=== PATIENT | female | born 1970 | race Caucasian/White ===

== ENCOUNTER 2018-01-16 10:11 | Emergency (ER) | payer BC ==
[2018-01-16 10:21] VITALS: BP 103/69; PULSE 72; RESP 18; TEMP 97.9
--- NOTE | 2018-01-16 10:49 | XR ---
EXAMINATION TYPE: XR finger RT , 3 VIEWS DATE OF EXAM ORDERED: 01/16/2018 HISTORY: Pain, slammed in door. COMPARISON: None. FINDINGS: There is a mildly displaced fracture the tuft of the right thumb. IMPRESSION: MILDLY DISPLACED FRACTURE OF THE TUFT OF THE RIGHT THUMB. CODE A: INITIAL ENCOUNTER FOR CLOSED FRACTURE.
--- NOTE | 2018-01-16 10:52 | ED ---
General Adult HPI - General Chief complaint: Extremity Injury, Upper Stated complaint: rt thumb injury Time Seen by Provider: 01/16/18 10:25 Source: patient, RN notes reviewed Mode of arrival: ambulatory Limitations: no limitations - History of Present Illness Initial comments: 47-year-old female presents to the emergency department for a chief complaint of right thumb pain 5 days. Patient states that 5 days ago she accidentally "slammed" her thumb in the doorway. She states that since then she has had some tingling in the tip of the thumb as well as bruising and swelling. She states it does not seem to be getting better so she came to the emergency department. She denies any other injuries. She states most of the pain is in the distal aspect of the thumb. She states it is a dull aching pain. She states she has been taking Motrin and it does help somewhat but is not relieving her pain. Patient has no other complaints at this time including shortness of breath, chest pain, abdominal pain, nausea or vomiting, headache, or visual changes. - Related Data Home Medications Medication Instructions Recorded Confirmed Fexofenadine HCl [Eva Allergy] 30 mg PO DAILY 10/29/14 10/29/14 Multivitamins, Thera [Multivitamin 1 tab PO DAILY 10/29/14 10/29/14 (formulary)] Previous Rx's Medication Instructions Recorded HYDROcodone/APAP 7.5-325MG [Gillett 1 each PO Q4H PRN #30 tab 10/29/14 7.5-325] Allergies Allergy/AdvReac Type Severity Reaction Status Date / Time Penicillins Allergy Rash/Hives Verified 01/16/18 10:22 Review of Systems ROS Statement: Those systems with pertinent positive or pertinent negative responses have been documented in the HPI. ROS Other: All systems not noted in ROS Statement are negative. Past Medical History Past Medical History: No Reported History Additional Past Medical History / Comment(s): Ovarian cyst, dermoid cyst with removal of rt ovary History of Any Multi-Drug Resistant Organisms: None Reported Past Surgical History: Appendectomy Additional Past Surgical History / Comment(s): Right salpingo-oophorectomy Past Anesthesia/Blood Transfusion Reactions: No Reported Reaction Past Psychological History: No Psychological Hx Reported Smoking Status: Former smoker Past Alcohol Use History: Occasional Past Drug Use History: None Reported - Past Family History Mother Family Medical History: Diabetes Mellitus Father Family Medical History: Hyperlipidemia, Hypertension Additional Family Medical History / Comment(s): heart disease Sister(s) Family Medical History: Cancer Additional Family Medical History / Comment(s): hodgkins lymphoma General Exam Limitations: no limitations General appearance: alert, in no apparent distress Head exam: Present: atraumatic, normocephalic, normal inspection Eye exam: Present: normal appearance, PERRL, EOMI. Absent: scleral icterus, conjunctival injection, periorbital swelling ENT exam: Present: normal exam, mucous membranes moist Neck exam: Present: normal inspection, full ROM. Absent: tenderness, meningismus, lymphadenopathy Respiratory exam: Present: normal lung sounds bilaterally. Absent: respiratory distress, wheezes, rales, rhonchi, stridor Cardiovascular Exam: Present: regular rate, normal rhythm, normal heart sounds. Absent: systolic murmur, diastolic murmur, rubs, gallop, clicks Extremities exam: Present: tenderness (Tenderness in the distal phalanx of the right thumb), normal capillary refill (Capillary refill less than 2 seconds in the right thumb. Radial pulse 2+ in the right upper extremity), other (Mild edema noted of the distal pharynx of the right thumb with minor ecchymosis. There is about a 10-20% subungual hematoma. No spreading or streaking redness, no drainage, no sign of infection. There is no break in the skin.). Absent: full ROM (Full range of motion in the MCP joint. Patient does have some limited flexion to 20 in the IP joint, full extension of the IP joint of the right thumb) Course Vital Signs 01/16/18 10:20 Temperature 97.9 F Pulse Rate 72 Respiratory 18 Rate Blood Pressure 103/69 O2 Sat by Pulse 100 Oximetry Medical Decision Making - Medical Decision Making 47-year-old female presents to the emergency department for a chief complaint of thumb pain 5 days. Patient states she slammed her right thumb in a door. Patient states it has had numbness to the tip of the thumb as well as pain and swelling for the past 5 days. She states it is not improving so she came to the emergency department. She has been applying ice and taking Motrin. Capillary refill less than 2 seconds in the right thumb. Patient has some limited range of motion of the IP joint of the right thumb but is able to flex to about 20 with full extension. There is no break in the skin, no signs of infection such as spreading or streaking redness. X-ray of the thumb shows a mildly displaced fracture of the tuft of the right thumb. Patient was splinted with a finger splint immobilizing the IP joint of the right thumb. Minimal subungual hematoma measuring about 10% of the fingernail. Patient denies any significant pressure under the nail bed and does not want to go trephination at this time. If symptoms worsen she will return for trephination. She'll follow up with primary care in 1-2 days. She was given a referral to orthopedics if she cannot see her primary care provider. Disposition Clinical Impression: Fracture of thumb Disposition: HOME SELF-CARE Condition: Good Instructions: Thumb Fracture (ED) Additional Instructions: Please wear splint and follow up with primary care or orthopedics. Please take motrin and tylenol for pain. Please ice the thumb and rest, ice, and elevate. Return here if you have any worsening symptoms. Is patient prescribed a controlled substance at d/c from ED?: No Referrals: Chirag Byrd DO [Doctor of Osteopathic Medicine] - 1-2 days Time of Disposition: 11:12
== END 2018-01-16 11:25 | disposition home or self-care (01) ==
LOC: EC 10:11
DX: S62.521A Displaced fracture of distal phalanx of right thumb, initial encounter for closed fracture (principal); Z87.891 Personal history of nicotine dependence; Z79.899 Other long term (current) drug therapy; Z88.0 Allergy status to penicillin; W23.0XXA Caught, crushed, jammed, or pinched between moving objects, initial encounter
CPT/HCPCS: 99283

== ENCOUNTER 2019-10-25 10:00 | Emergency (ER) | payer BC, OTHER ==
[2019-10-25] MEDS ORDERED: PROPARACAINE 0.5% OPHTH DROPS 15 ML BTL LEFT EYE STA (10:17)
--- NOTE | 2019-10-25 10:21 | ED ---
Eye Problem HPI - General Chief complaint: Eye Problems Stated complaint: Eye Injury Time Seen by Provider: 10/25/19 10:07 Source: patient, RN notes reviewed, old records reviewed Mode of arrival: ambulatory Limitations: no limitations - History of Present Illness Initial comments: Patient is a 40-year-old female presents today with 5 days of left eye pain. Patient reports that she noticed some redness and swelling over the weekend. She states she went to an urgent care clinic on Wednesday and was started on tobramycin drops and Keflex for blepharitis and conjunctivitis on Wednesday. She reports that she took them he had for 24 hours yesterday and comes here with complaining of worsening swelling to the left eyelid. Patient states that she has some pain with eye movements and does complain of a headache. Patient states she doesn't typically wear glasses. She does not wear contacts. She reports that she did switch to a new mascara during "quarantine time". But states that she has not been using for the past few days. Patient states that she has had no fevers or chills. She does report some blurry vision within the left eye. - Related Data Home Medications Medication Instructions Recorded Confirmed Cephalexin [Keflex] 500 mg PO Q8HR 10/25/19 10/25/19 Tobramycin 0.3% Ophth Soln [Tobrex 1 drop LEFT EYE Q4H 10/25/19 10/25/19 0.3% Ophth Soln] Previous Rx's Medication Instructions Recorded Cephalexin [Keflex] 500 mg PO Q6HR 7 Days #28 cap 10/25/19 Allergies Allergy/AdvReac Type Severity Reaction Status Date / Time Penicillins Allergy Rash/Hives Verified 10/25/19 11:51 Review of Systems ROS Statement: Those systems with pertinent positive or pertinent negative responses have been documented in the HPI. ROS Other: All systems not noted in ROS Statement are negative. Past Medical History Past Medical History: No Reported History Additional Past Medical History / Comment(s): Ovarian cyst, dermoid cyst with removal of rt ovary History of Any Multi-Drug Resistant Organisms: None Reported Past Surgical History: Appendectomy Additional Past Surgical History / Comment(s): Right salpingo-oophorectomy Past Anesthesia/Blood Transfusion Reactions: No Reported Reaction Past Psychological History: No Psychological Hx Reported Smoking Status: Current every day smoker, Never smoker Past Alcohol Use History: Occasional Past Drug Use History: None Reported - Past Family History Mother Family Medical History: Diabetes Mellitus Father Family Medical History: Hyperlipidemia, Hypertension Additional Family Medical History / Comment(s): heart disease Sister(s) Family Medical History: Cancer Additional Family Medical History / Comment(s): hodgkins lymphoma General Exam - General Exam Comments Initial Comments: 48-year-old female. Alert and oriented. No distress. Limitations: no limitations General appearance: alert, in no apparent distress Head exam: Present: atraumatic, normocephalic, normal inspection Eye exam: Present: PERRL, EOMI, periorbital swelling (It has left eye periorbital swelling, mainly over the left upper eyelids concerning for blepharitis. She does have some conjunctival injection and chemosis over the left eye. She reports pain with left lateral gaze.), periorbital tenderness. Absent: normal appearance, scleral icterus, conjunctival injection ENT exam: Present: normal exam, mucous membranes moist Neck exam: Present: normal inspection. Absent: tenderness, meningismus, lymphadenopathy Respiratory exam: Present: normal lung sounds bilaterally. Absent: respiratory distress, wheezes, rales, rhonchi, stridor Cardiovascular Exam: Present: regular rate, normal rhythm, normal heart sounds. Absent: systolic murmur, diastolic murmur, rubs, gallop, clicks GI/Abdominal exam: Present: soft, normal bowel sounds. Absent: distended, tenderness, guarding, rebound, rigid Extremities exam: Present: normal inspection, full ROM, normal capillary refill. Absent: tenderness, pedal edema, joint swelling, calf tenderness Back exam: Present: normal inspection Neurological exam: Present: alert, oriented X3, CN II-XII intact Psychiatric exam: Present: normal affect, normal mood Skin exam: Present: warm, dry, intact, normal color. Absent: rash Course Vital Signs 10/25/19 10/25/19 10/25/19 10:01 10:06 11:06 Temperature 98.0 F Pulse Rate 70 Respiratory 16 18 18 Rate Blood Pressure 138/85 O2 Sat by Pulse 100 Oximetry Medical Decision Making - Medical Decision Making 40-year-old female presents with 5 days of left eye pain and swelling. She has evidence of blepharitis. Extraocular eye movements to cause some pain with left lateral gaze. Therefore CT of the orbits was completed. His evidence of periorbital cellulitis with no evidence of orbital cellulitis. Patient intraocular pressures were 15 and 14 on left and right eye. Visual acuity was 20/40 which is normal for her she does her glasses. Patient at this time is taking tobramycin drops. Discussed increasing the Keflex as every 6 hours. Discussed appropriate follow-up with primary care physician and ophthalmology. Discussed the importance of doing gentle cleansing and warm compresses over the eye - Lab Data Result diagrams: 10/25/19 10:38 10/25/19 10:38 Lab Results 10/25/19 10/25/19 Range/Units 10:38 10:38 WBC 7.6 (3.8-10.6) k/uL RBC 4.66 (3.80-5.40) m/uL Hgb 15.0 (11.4-16.0) gm/dL Hct 46.2 H (34.0-46.0) % MCV 99.0 (80.0-100.0) fL MCH 32.2 (25.0-35.0) pg MCHC 32.5 (31.0-37.0) g/dL RDW 11.3 L (11.5-15.5) % Plt Count 261 (150-450) k/uL Neutrophils % 67 % Lymphocytes % 24 % Monocytes % 5 % Eosinophils % 2 % Basophils % 0 % Neutrophils # 5.1 (1.3-7.7) k/uL Lymphocytes # 1.9 (1.0-4.8) k/uL Monocytes # 0.4 (0-1.0) k/uL Eosinophils # 0.1 (0-0.7) k/uL Basophils # 0.0 (0-0.2) k/uL Sodium 143 (137-145) mmol/L Potassium 4.6 (3.5-5.1) mmol/L Chloride 107 (98-107) mmol/L Carbon Dioxide 27 (22-30) mmol/L Anion Gap 9 mmol/L BUN 9 (7-17) mg/dL Creatinine 0.68 (0.52-1.04) mg/dL Est GFR (CKD-EPI)AfAm >90 (>60 ml/min/1.73 sqM) Est GFR (CKD-EPI)NonAf >90 (>60 ml/min/1.73 sqM) Glucose 50 L (74-99) mg/dL Calcium 9.7 (8.4-10.2) mg/dL - Radiology Data Radiology results: report reviewed Correlate for preseptal orbital cellulitis and follow-up is indicated. Disposition Clinical Impression: Blepharitis, Periorbital cellulitis Disposition: HOME SELF-CARE Condition: Good Instructions (If sedation given, give patient instructions): Blepharitis (ED), Periorbital Cellulitis in Adults (ED) Additional Instructions: Continue to do the eyedrops as previously prescribed. Increase the Keflex to 4 times a day. Patient should follow-up with ophthalmology. Continue to wash the eyelid with warm compresses and gentle soap Prescriptions: Cephalexin [Keflex] 500 mg PO Q6HR 7 Days #28 cap Is patient prescribed a controlled substance at d/c from ED?: No Referrals: None,Stated [Primary Care Provider] - 1-2 days Marc Reece MD [STAFF PHYSICIAN] - 1-2 days Time of Disposition: 12:10
[2019-10-25 10:50] LABS: Basophils % (A) 0 %; Eosinophils # (A) 0.1 k/uL (0-0.7); Eosinophils % (A) 2 %; HCT 46.2 % (34.0-46.0); Lymphocytes # (A) 1.9 k/uL (1.0-4.8); Lymphocytes % (A) 24 %; MCH 32.2 pg (25.0-35.0); MCHC 32.5 g/dL (31.0-37.0); Mean Platelet Volume 8.3; Monocytes # (A) 0.4 k/uL (0-1.0); Monocytes % (A) 5 %; Neutrophils # (A) 5.1 k/uL (1.3-7.7); Neutrophils % (A) 67 %; Platelet Count 261 k/uL (150-450); RBC 4.66 m/uL (3.80-5.40); RDW 11.3 % (11.5-15.5); WBC 7.6 k/uL (3.8-10.6)
--- NOTE | 2019-10-25 11:14 | CT ---
EXAMINATION TYPE: CT orbits w con DATE OF EXAM: 10/25/2019 COMPARISON: None HISTORY: Eye injury and left eye swelling CT DLP: 162.2 mGycm Automated exposure control for dose reduction was used. CONTRAST: Performed with IV Contrast, patient injected with 100 ml mL of Isovue 300. FINDINGS: Possible mucus retention cyst noted incidentally within the right maxillary sinus. No abnormal enhanc ement following contrast administration. The globes show symmetric appearance. There is no evident ab scess. Some mild asymmetry in soft tissue swelling is noted at the lateral margin of the anterior asp ect of the left orbit in the preseptal location. No evident fracture or dislocation. IMPRESSION: CORRELATE FOR PRESEPTAL ORBITAL CELLULITIS AND FOLLOW-UP INDICATED.
[2019-10-25 11:16] VITALS: RESP 18
[2019-10-25 11:20] LABS: African American GFR (CKD) >90 (>60 ml/min/1.73 sqM); Anion Gap 9 mmol/L; Blood Urea Nitrogen 9 mg/dL (7-17); Calcium 9.7 mg/dL (8.4-10.2); Carbon Dioxide 27 mmol/L (22-30); Chloride 107 mmol/L (98-107); Glucose 50 mg/dL (74-99); Non-African American GFR(CKD) >90 (>60 ml/min/1.73 sqM); Potassium 4.6 mmol/L (3.5-5.1); Sodium 143 mmol/L (137-145)
[2019-10-25] MEDS ORDERED: FLUORESCEIN STRIPS 1 MG STRIP BOTH EYES ONE (11:22)
[2019-10-25] MEDS ORDERED: cefTRIAXone IN SWFI 1,000 MG/10 ML SYRINGE IVP STA (11:49)
[2019-10-25 12:38] VITALS: BP 120/95; PULSE 60; TEMP 97.9
== END 2019-10-25 12:23 | disposition home or self-care (01) ==
LOC: EC 10:00
DX: L03.213 Periorbital cellulitis (principal); H01.004 Unspecified blepharitis left upper eyelid; Z88.0 Allergy status to penicillin; F17.200 Nicotine dependence, unspecified, uncomplicated
CPT/HCPCS: 36415; 80048; 85025; 70481; 99284; J0696; Q9967

== ENCOUNTER → 2021-07-25 | Outpatient (CLI) | payer BC ==
--- NOTE | 2021-07-25 10:56 | XR ---
EXAMINATION TYPE: XR ankle complete LT DATE OF EXAM: 07/25/2021 COMPARISON: NONE HISTORY: Pain TECHNIQUE: 3 views of the left ankle are submitted for evaluation. FINDINGS: There is no evidence for fracture or dislocation. Ankle mortise is intact. Soft tissues are within normal limits. IMPRESSION: 1. No evidence for acute fracture.
--- NOTE | 2021-07-25 10:56 | XR ---
EXAMINATION TYPE: XR knee complete RT DATE OF EXAM: 07/25/2021 CLINICAL HISTORY: pain TECHNIQUE: Three views of the right knee are obtained. COMPARISON: None. FINDINGS: Lucency traversing the patella may reflect nondisplaced patellar fracture The tri-compartme nt joint spaces appear within normal limits. Prepatellar soft tissue swelling. IMPRESSION: Suspect nondisplaced patellar fracture.
== END | disposition home or self-care (01) ==
LOC: RADXRYALE 10:36
PROVIDERS: ATTEND Physician Assistant
DX: M25.561 Pain in right knee (principal); M25.572 Pain in left ankle and joints of left foot

== ENCOUNTER 2021-11-24 10:46 | Emergency (ER) | payer BC ==
[2021-11-24 10:57] VITALS: BP 110/78; PULSE 78; RESP 20; TEMP 97.7
[2021-11-24] MEDS ORDERED: ACET/COD 300 MG/30 MG STARTER PACK 6 TAB BTL PO STA (11:19)
--- NOTE | 2021-11-24 11:21 | ED ---
Skin/Abscess/FB HPI - General Chief complaint: Skin/Abscess/Foreign Body Stated complaint: Spider bite Time Seen by Provider: 11/24/21 11:00 Source: patient, RN notes reviewed Mode of arrival: ambulatory Limitations: no limitations - History of Present Illness Initial comments: 51-year-old female presents emergency from chief complaint of pain, swelling to her right hand index finger. Patient states is a small bump a few days ago states that has increased in size increasing redness. Patient states she has no redness passive joint denies any fevers or chills denies any trauma no other complaints. No history of MRSA patient does have rash ALLERGY to penicillin products. - Related Data Home Medications Medication Instructions Recorded Confirmed Cephalexin [Keflex] 500 mg PO Q8HR 10/25/19 10/25/19 Tobramycin 0.3% Ophth Soln [Tobrex 1 drop LEFT EYE Q4H 10/25/19 10/25/19 0.3% Ophth Soln] Previous Rx's Medication Instructions Recorded Cephalexin [Keflex] 500 mg PO Q6HR 7 Days #28 cap 10/25/19 Cephalexin [Keflex] 500 mg PO Q6HR #40 cap 11/24/21 Sulfamethox-Tmp 800-160Mg [Bactrim 1 each PO Q12HR #20 tab 11/24/21 Ds] Allergies Allergy/AdvReac Type Severity Reaction Status Date / Time Penicillins Allergy Rash/Hives Verified 11/24/21 10:57 Review of Systems ROS Statement: Those systems with pertinent positive or pertinent negative responses have been documented in the HPI. ROS Other: All systems not noted in ROS Statement are negative. Past Medical History Past Medical History: No Reported History Additional Past Medical History / Comment(s): Ovarian cyst, dermoid cyst with removal of rt ovary History of Any Multi-Drug Resistant Organisms: None Reported Past Surgical History: Appendectomy, Hysterectomy Additional Past Surgical History / Comment(s): Right salpingo-oophorectomy Past Anesthesia/Blood Transfusion Reactions: No Reported Reaction Past Psychological History: No Psychological Hx Reported Smoking Status: Current every day smoker, Never smoker Past Alcohol Use History: Occasional Past Drug Use History: None Reported - Past Family History Mother Family Medical History: Diabetes Mellitus Father Family Medical History: Hyperlipidemia, Hypertension Additional Family Medical History / Comment(s): heart disease Sister(s) Family Medical History: Cancer Additional Family Medical History / Comment(s): hodgkins lymphoma General Exam Limitations: no limitations General appearance: alert, in no apparent distress Head exam: Present: atraumatic, normocephalic, normal inspection Respiratory exam: Present: normal lung sounds bilaterally. Absent: respiratory distress, wheezes, rales, rhonchi, stridor Cardiovascular Exam: Present: regular rate, normal rhythm, normal heart sounds. Absent: systolic murmur, diastolic murmur, rubs, gallop, clicks Extremities exam: Present: other (Right hand index finger there is a 1 cm surrounding erythema dorsal aspect, times palpation patient does have full range of motion there is no erythema extends past the MCP joint) Course Vital Signs 11/24/21 10:54 Temperature 97.7 F Pulse Rate 78 Respiratory 20 Rate Blood Pressure 110/78 O2 Sat by Pulse 98 Oximetry Medical Decision Making - Medical Decision Making Patient has localizes erythematous site on the dorsal aspect her finger she was placed on Bactrim and Keflex patient will follow-up with warm compresses return parameters discussed. Disposition Clinical Impression: Cellulitis of finger of right hand Disposition: HOME SELF-CARE Condition: Stable Instructions (If sedation given, give patient instructions): Cellulitis (ED) Additional Instructions: Please return to the Emergency Department if symptoms worsen or any other concerns. Prescriptions: Sulfamethox-Tmp 800-160Mg [Bactrim Ds] 1 each PO Q12HR #20 tab Cephalexin [Keflex] 500 mg PO Q6HR #40 cap Is patient prescribed a controlled substance at d/c from ED?: No Referrals: Adal Huber DO [Primary Care Provider] - 1-2 days Time of Disposition: 11:20
== END 2021-11-24 11:26 | disposition home or self-care (01) ==
LOC: EC 10:46
DX: L03.011 Cellulitis of right finger (principal); F17.200 Nicotine dependence, unspecified, uncomplicated; Z88.0 Allergy status to penicillin
CPT/HCPCS: 99283

== ENCOUNTER 2022-07-08 02:27 | Emergency (ER) | payer OTHER, BC ==
[2022-07-08] MEDS ORDERED: TOPICAL SKIN ADHESIVE 1 EACH AMP TOPICAL ONE (02:48)
[2022-07-08 02:51] VITALS: BP 115/80; PULSE 71; RESP 12; TEMP 96.9
[2022-07-08] MEDS ORDERED: BACITRACIN OINT 1 EACH PACKET TOPICAL ONE ×2 (03:27→04:00)
--- NOTE | 2022-07-08 03:28 | ED ---
Wound/Laceration HPI - General Chief Complaint: Wound/Laceration Stated Complaint: Finger injury,[facility] Time Seen by Provider: 07/08/22 02:48 Source: patient Mode of arrival: ambulatory Limitations: no limitations - History of Present Illness Initial Comments: This patient is a 51-year-old woman who presents to have evaluation of injuries to 2 of her fingertips which occurred at work tonight. The patient states that she attempted to catch a heavy piece of metal and an edge of it took skin off of 2 of her fingertips. She states that there was difficulty in controlling the bleeding and she presents to have evaluation. She does state that her tetanus shot is up-to-date. -: minutes(s) Extremity Location: Left: Hand Place: work Patient Tetanus UTD: Yes Context: accidental Associated Symptoms: none - Related Data Home Medications Medication Instructions Recorded Confirmed Cephalexin [Keflex] 500 mg PO Q8HR 10/25/19 10/25/19 Tobramycin 0.3% Ophth Soln [Tobrex 1 drop LEFT EYE Q4H 10/25/19 10/25/19 0.3% Ophth Soln] Previous Rx's Medication Instructions Recorded Cephalexin [Keflex] 500 mg PO Q6HR 7 Days #28 cap 10/25/19 Cephalexin [Keflex] 500 mg PO Q6HR #40 cap 11/24/21 Sulfamethox-Tmp 800-160Mg [Bactrim 1 each PO Q12HR #20 tab 11/24/21 Ds] Allergies Allergy/AdvReac Type Severity Reaction Status Date / Time Penicillins Allergy Rash/Hives Verified 11/24/21 10:57 Review of Systems ROS Statement: Those systems with pertinent positive or pertinent negative responses have been documented in the HPI. ROS Other: All systems not noted in ROS Statement are negative. Skin: Reports: as per HPI Neurological: Denies: weakness, numbness Hematological/Lymphatic: Denies: easy bleeding Past Medical History Past Medical History: No Reported History Additional Past Medical History / Comment(s): Ovarian cyst, dermoid cyst with removal of rt ovary History of Any Multi-Drug Resistant Organisms: None Reported Past Surgical History: Appendectomy, Hysterectomy Additional Past Surgical History / Comment(s): Right salpingo-oophorectomy Past Anesthesia/Blood Transfusion Reactions: No Reported Reaction Past Psychological History: No Psychological Hx Reported Smoking Status: Current every day smoker, Never smoker Past Alcohol Use History: Occasional Past Drug Use History: None Reported - Past Family History Mother Family Medical History: Diabetes Mellitus Father Family Medical History: Hyperlipidemia, Hypertension Additional Family Medical History / Comment(s): heart disease Sister(s) Family Medical History: Cancer Additional Family Medical History / Comment(s): hodgkins lymphoma General Exam Limitations: no limitations General appearance: alert, in no apparent distress Skin exam: Present: warm, dry, normal color, other (The patient has a small flap laceration to the pad of the left third digit. There has been a small piece of the epidermis avulsed from the pad of the left second digit.) Course Vital Signs 07/08/22 02:44 Temperature 96.9 F L Pulse Rate 71 Respiratory 12 Rate Blood Pressure 115/80 O2 Sat by Pulse 99 Oximetry Medical Decision Making - Medical Decision Making Patient's 51-year-old woman with small laceration/laceration avulsion to the pad of the left second and third digits. As the flap laceration was present on the third digit I was able to glue this down with skin adhesive. The other laceration is covered with bacitracin ointment and dressing. Discussed appropriate further care and follow-up as well as the return parameters. Was pt. sent in by a medical professional or institution (Dr. PA, CUSTOMER CARE TEAM COACH, urgent care, hospital, or detention...) When possible be specific @ -[No] Did you speak to anyone other than the patient for history (EMS, parent, family, police, friend...)? What history was obtained from this source @ -[No] Did you review nursing and triage notes (agree or disagree)? Why? @ -[I reviewed and agree with nursing and triage notes] Were old charts reviewed (outside hosp., previous admission, EMS record, old EKG, old radiological studies, urgent care reports/EKG's, detention records)? Report findings @ -[No old charts were reviewed] Differential Diagnosis (chest pain, altered mental status, abdominal pain women, abdominal pain men, vaginal bleeding, weakness, fever, dyspnea, syncope, headache, dizziness, GI bleed, back pain, seizure, CVA, palpatations, mental health, musculoskeletal)? @ -[Laceration EKG interpreted by me (3pts min.). @ -[ X-rays interpreted by me (1pt min.). @ -[None done] CT interpreted by me (1pt min.). @ -[None done] U/S interpreted by me (1pt. min.). @ -[None done] What testing was considered but not performed or refused? (CT, X-rays, U/S, labs)? Why? @ -[None] What meds were considered but not given or refused? Why? @ -[None] Did you discuss the management of the patient with other professionals (professionals i.e. , PA, CUSTOMER CARE TEAM COACH, lab, RT, psych nurse, protective services social worker, automotive glass installer, teacher, commanding officer motorized squad, case finishing machine adjuster)? Give summary @ -[No] Was smoking cessation discussed for >3mins.? @ -[No] Was critical care preformed (if so, how long)? @ -[No] Were there social determinants of health that impacted care today? How? (Homelessness, low income, unemployed, alcoholism, drug addiction, transportation, low edu. Level, literacy, decrease access to med. care, [facility], rehab)? @ -[No] Was there de-escalation of care discussed even if they declined (Discuss DNR or withdrawal of care, Hospice)? DNR status @ -[No] What co-morbidities impacted this encounter? (DM, HTN, Smoking, COPD, CAD, Cancer, CVA, ARF, Chemo, Hep., AIDS, mental health diagnosis, sleep apnea, morbid obesity)? @ -[None] Was patient admitted / discharged? Hospital course, mention meds given and route, prescriptions, significant lab abnormalities, going to OR and other pertinent info. @ -[Discharged problem with uncertain prognosis? @ -[No] Drug Therapy requiring intensive monitoring for toxicity (Heparin, Nitro, Insulin, Cardizem)? @ -[No] Were any procedures done? skin adhesive left third digit iagnosis/symptom? @ -[acute fingertip lacerations, digit 2 and 3 left hand, uncomplicated Acute, or Chronic, or Acute on Chronic? @ -[default], Uncomplicated (without systemic symptoms) or Complicated (systemic symptoms)? @ -[default] Side effects of treatment? @ -[No] Exacerbation, Progression, or Severe Exacerbation? @ -[No] Poses a threat to life or bodily function? How? (Chest pain, [place], [place], pneumonia, PE, COPD, DKA, ARF, appy, cholecystitis, CVA, Diverticulitis, Homicidal, Suicidal, threat to staff... and all critical care pts) @ -[No] Disposition Clinical Impression: Laceration Disposition: HOME SELF-CARE Condition: Good Instructions (If sedation given, give patient instructions): Finger Laceration (ED) Is patient prescribed a controlled substance at d/c from ED?: No Referrals: Adal Huber DO [Primary Care Provider] - 1-2 days
== END 2022-07-08 04:44 | disposition home or self-care (01) ==
LOC: EC 02:27
DX: S61.211A Laceration without foreign body of left index finger without damage to nail, initial encounter (principal); S61.213A Laceration without foreign body of left middle finger without damage to nail, initial encounter; F17.200 Nicotine dependence, unspecified, uncomplicated; Z88.0 Allergy status to penicillin; W26.8XXA Contact with other sharp object(s), not elsewhere classified, initial encounter
CPT/HCPCS: 99282